=== PATIENT | female | born 1970 | race Caucasian/White ===

== ENCOUNTER → 2020-02-29 09:05 | Outpatient (CLI) | payer BC, SELFPAY ==
--- NOTE | ~2020-02-29 | XR_ITS ---
XR thoracic spine 2V DATE: 02/29/2020 09:58 INDICATION: Mid back pain TECHNIQUE: Standing AP, lateral, swimmer views COMPARISON: None FINDINGS: No fracture or dislocation or bone destruction. The thoracic pedicles are intact. There is mild degenerative spurring. IMPRESSION: Mild degenerative change Reviewed, dictated and finalized at location A. [employer] OPERATIONS MANAGER IMPRESSION: Mild degenerative change
--- NOTE | ~2020-02-29 | XR_ITS ---
XR lumbar spine 2-3V DATE: 02/29/2020 09:58 INDICATION: Low back pain TECHNIQUE: Standing AP, lateral and coned lateral lumbosacral views COMPARISON: 02/29/2020 lumbar spine FINDINGS: Normal alignment. No fracture or bone destruction or spondylolisthesis. Mild degenerative d isc disease, primarily at L4-5. The sacral iliac joints are intact. IMPRESSION: Mild degenerative change Reviewed, dictated and finalized at location A. [place] PARTS PROFESSIONAL IMPRESSION: Mild degenerative change
--- NOTE | ~2020-02-29 | XR_ITS ---
XR cervical spine 4-5V DATE: 02/29/2020 09:58 INDICATION: Neck pain TECHNIQUE: Standing AP, open-mouth and neutral, flexion and extension lateral views COMPARISON: None FINDINGS: C1 and C2 are normally aligned and the odontoid process is intact. No fracture or dislocation or locked facet or prevertebral soft tissue swelling. No instability is evident on flexion or extension. There is mild loss of interspace height and mild anterior posterior spurring at C5-6 consistent with degenerative disc disease. There is mild to moderate loss of interspace height at C6-7. The remaining cervical interspaces are relatively well preserved. IMPRESSION: Degenerative disc disease at C5-6 and to a lesser extent C6-7 Reviewed, dictated and finalized at location A. [employer] SALES CONSULTANT
== END ==
PROVIDERS: Visit Provider Chiropractor
DX: M50.323 Other cervical disc degeneration at C6-C7 level (principal); M51.34 Other intervertebral disc degeneration, thoracic region; M51.36 Other intervertebral disc degeneration, lumbar region
CPT/HCPCS: 72050; 72070; 72100

== ENCOUNTER → 2020-03-17 13:33 | Outpatient (CLI) | payer BC, SELFPAY ==
--- NOTE | ~2020-03-17 | MM_ITS ---
EXAMINATION: MM screening [facility] BI w raffi HISTORY: Screening TECHNIQUE: Craniocaudal and mediolateral oblique 3-D tomosynthesis images were obtained and synthetic 2-D images were generated. CAD analysis was submitted and interpreted. COMPARISON: Comparison to multiple prior studies sequentially, with oldest reviewed study dated 10/17. BREAST PARENCHYMAL COMPOSITION: The breasts are extremely dense, which lowers the sensitivity of mamm ography. FINDINGS: There is a mass measuring up to 2.8 cm in the upper outer quadrant of the left breast which appears new. The right breast is stable without evidence for malignancy. IMPRESSION: 1. New left breast mass, upper outer quadrant measuring up to 2.8 cm. 2. Additional mammographic views and possible breast ultrasound are recommended. BI-RADS Category 0: Incomplete: Needs additional imaging evaluation. Reviewed, dictated and finalized at location A. RECEPTIONIST IMPRESSION: 1. New left breast mass, upper outer quadrant measuring up to 2.8 cm. 2. Additional mammographic views and possible breast ultrasound are recommended . BI-RADS Category 0: Incomplete: Needs additional imaging evaluation.
== END ==
PROVIDERS: Visit Provider Obstetrics & Gynecology
DX: Z12.31 Encounter for screening mammogram for malignant neoplasm of breast (principal); R92.8 Other abnormal and inconclusive findings on diagnostic imaging of breast
CPT/HCPCS: 77063; 77067

== ENCOUNTER → 2020-04-10 09:14 | Outpatient (CLI) | payer BC, SELFPAY ==
--- NOTE | ~2020-04-10 | MMUS_ITS ---
EXAMINATION: MM diagnostic mammo unilat LT, US breast LT complete HISTORY: New upper outer quadrant 2.8 cm left breast mass reported on 03/17/2020 screening mammogram TECHNIQUE: Additional 3-D tomosynthesis images of the left breast were performed and synthetic 2-D im ages were generated. CAD analysis was submitted and interpreted. High resolution complete left breast ultrasound was performed. COMPARISON: 03/17/2020 bilateral digital screening mammogram BREAST PARENCHYMAL COMPOSITION: The breasts are extremely dense, which lowers the sensitivity of mamm ography. FINDINGS: MAMMOGRAPHIC FINDINGS: Extremely dense breast tissue is noted. This may obscure masses. An up proximally 2.4 cm low-density circumscribed mass is noted in the posterior outer mid left breas t. Left breast ultrasound examination was performed. ULTRASOUND: At 2:00 5 cm from the nipple corresponding to the mammographic finding is a parallel circumscribed so nolucency measuring 0.4 x 2.4 centimeters, consistent with simple cyst. There are scattered additional much smaller cysts of the left breast, the next largest measuring 4.4 x 8.4 x 10 mm dimension at 1:00 4 cm from the nipple. No suspicious mass or shadowing is detected. IMPRESSION: 1. Multiple benign left breast cyst. No mammographic evidence of malignancy. 2. Routine annual mammographic screening is recommended. BI-RADS Category 2: Benign finding(s). Reviewed, dictated and finalized at location A. K IMPRESSION: 1. Multiple benign left breast cyst. No mammographic evidence of malignancy. 2. Routine annual mammographic screening is recommended. BI-RADS Category 2: Benign finding(s).
== END ==
PROVIDERS: Visit Provider Obstetrics & Gynecology
DX: R92.8 Other abnormal and inconclusive findings on diagnostic imaging of breast (principal)
CPT/HCPCS: 76641; 77065

== ENCOUNTER → 2021-06-19 13:51 | Outpatient (CLI) | payer BC, SELFPAY ==
--- NOTE | ~2021-06-19 | MM_ITS ---
EXAMINATION: MM screening [facility] w raffi HISTORY: Screening mammogram TECHNIQUE: Craniocaudal and mediolateral oblique 3-D tomosynthesis images were obtained and synthetic 2-D images were generated. CAD analysis was submitted and interpreted. COMPARISON: April 10, 2020 diagnostic mammogram and left breast ultrasound 03/17/2020 bilateral screening mammogram / diagnostic right mammogram and right breast ultrasound 12/25/2017 diagnostic right mammogram and limited right breast ultrasound 12/19/2017 bilateral screening mammogram BREAST PARENCHYMAL COMPOSITION: The breasts are extremely dense, which lowers the sensitivity of mamm ography. FINDINGS: Left breast: Approximately 8.5 x 14 mm opacity is noted in the outer mid left breast. Additional larger circumscri bed opacities with halo sign suggesting cysts are noted on the left. Diagnostic left mammogram and le ft breast ultrasound examination are recommended. Right breast: There is no evidence of suspicious mass, calcification, or architectural distortion to suggest malignancy in either breast. There has been no suspicious interval change. IMPRESSION: 1. New 8.5 x 14 mm mass, outer mid left breast 2. Diagnostic left mammogram and left breast ultrasound are recommended BI-RADS Category 0: Incomplete: Needs additional imaging evaluation. Reviewed, dictated and finalized at location A.
== END ==
PROVIDERS: Visit Provider Obstetrics & Gynecology
DX: Z12.31 Encounter for screening mammogram for malignant neoplasm of breast (principal); R92.8 Other abnormal and inconclusive findings on diagnostic imaging of breast
CPT/HCPCS: 77063; 77067

== ENCOUNTER → 2021-07-09 14:08 | Outpatient (CLI) | payer BC, SELFPAY ==
--- NOTE | ~2021-07-09 | MMUS_ITS ---
EXAMINATION: MM diagnostic [facility] LT w raffi, US breast LT complete HISTORY: Follow-up left breast mass TECHNIQUE: Additional 3-D tomosynthesis images of the left breast were performed and synthetic 2-D im ages were generated. CAD analysis was submitted and interpreted. High resolution complete left breast ultrasound was performed. COMPARISON: Comparison to multiple prior studies sequentially, with oldest reviewed study dated 12/01. BREAST PARENCHYMAL COMPOSITION: The breasts are extremely dense, which lowers the sensitivity of mamm ography FINDINGS: MAMMOGRAPHIC FINDINGS: There is a circumscribed mass in the mid outer aspect of the left breast posteriorly on MLO and medio lateral views. No suspicious calcifications or architectural distortion. ULTRASOUND: Complete US of all 4 quadrants of the left breast and retroareolar region was reviewed. There are mul tiple left breast cysts throughout the left breast, largest measuring 2.7 x 0.6 x 2.9 cm correspondin g to the mammographic abnormality located at 2:00, 5 cm from the nipple. Multiple additional smaller cyst are present throughout the left breast. No sonographic evidence for malignancy. IMPRESSION: 1. No evidence for malignancy in the left breast. Benign findings. 2. Routine yearly screening mammogram and regular clinical breast examination are recommended. BI-RADS Category 2: Benign finding(s). Reviewed, dictated and finalized at location A. IMPRESSION: 1. No evidence for malignancy in the left breast. Benign findings. 2. Routine yearly screening mammogram and regular clinical breast examination a re recommended. BI-RADS Category 2: Benign finding(s).
== END ==
PROVIDERS: PCP Obstetrics & Gynecology; Visit Provider Obstetrics & Gynecology
DX: R92.8 Other abnormal and inconclusive findings on diagnostic imaging of breast (principal)
CPT/HCPCS: 76641; 77061; 77065; G0279

== ENCOUNTER → 2022-08-05 15:42 | Outpatient (CLI) | payer BC, SELFPAY ==
--- NOTE | ~2022-08-05 | MM_ITS ---
EXAMINATION: MM screening [facility] w raffi HISTORY: Screening TECHNIQUE: Craniocaudal and mediolateral oblique 3-D tomosynthesis images were obtained and synthetic 2-D images were generated. CAD analysis was submitted and interpreted. COMPARISON: Comparison to multiple prior studies sequentially, with oldest reviewed study dated 12/02. BREAST PARENCHYMAL COMPOSITION: The breasts are extremely dense, which lowers the sensitivity of mammography FINDINGS: There is no evidence of suspicious mass, calcification, or architectural distortion to sugg est malignancy in either breast. There has been no suspicious interval change. IMPRESSION: 1. No mammographic evidence of malignancy. 2. Recommend routine screening mammography in one year. BI-RADS Category 1: Negative Reviewed, dictated and finalized at location A.
== END ==
PROVIDERS: PCP Obstetrics & Gynecology; Visit Provider Obstetrics & Gynecology
DX: Z12.31 Encounter for screening mammogram for malignant neoplasm of breast (principal)
CPT/HCPCS: 77063; 77067

== ENCOUNTER 2023-10-31 13:15 | Outpatient (CLI) | payer BC, SELFPAY ==
--- NOTE | ~2023-10-31 | MM_ITS ---
EXAMINATION: MM screening [facility] w raffi HISTORY: Screening TECHNIQUE: Craniocaudal and mediolateral oblique 3-D tomosynthesis images were obtained and synthetic 2-D images were generated. CAD analysis was submitted and interpreted. COMPARISON: Comparison to multiple prior studies sequentially, with oldest reviewed study dated 06/22. BREAST PARENCHYMAL COMPOSITION: Dense: The breasts are extremely dense, which lowers the sensitivity of mammography. FINDINGS: There is no evidence of suspicious mass, calcification, or architectural distortion to sugg est malignancy in either breast. There has been no suspicious interval change. IMPRESSION: 1. No mammographic evidence of malignancy. 2. Recommend routine screening mammography in one year. BI-RADS Category 1: Negative Reviewed, dictated and finalized at location B.
== END 2023-10-31 13:16 | disposition home or self-care (01) ==
LOC: MICIMG 13:17
PROVIDERS: PCP Obstetrics & Gynecology; Visit Provider Obstetrics & Gynecology
DX: Z12.31 Encounter for screening mammogram for malignant neoplasm of breast (principal)
CPT/HCPCS: 77063; 77067

== ENCOUNTER 2024-12-24 13:29 | Outpatient (CLI) | payer BC, SELFPAY ==
--- NOTE | ~2024-12-24 | MM_ITS ---
EXAMINATION: MM screening [facility] w raffi HISTORY: Screening TECHNIQUE: Craniocaudal and mediolateral oblique 3-D tomosynthesis images were obtained and synthetic 2-D images were generated. CAD analysis was submitted and interpreted. COMPARISON: Comparison to multiple prior studies sequentially, with oldest reviewed study dated 03/17/2020. BREAST PARENCHYMAL COMPOSITION: Dense: The breasts are extremely dense, which lowers the sensitivity of mammography. FINDINGS: There is no evidence of suspicious mass, calcification, or architectural distortion to suggest malignancy in either breast. There has been no suspicious interval change. IMPRESSION: 1. No mammographic evidence of malignancy. 2. Recommend routine screening mammography in one year. BI-RADS Category 1: Negative Reviewed, dictated and finalized at location O.
== END 2024-12-24 13:30 | disposition home or self-care (01) ==
LOC: MICIMG 13:30
PROVIDERS: PCP Family Medicine; Visit Provider Obstetrics & Gynecology
DX: Z12.31 Encounter for screening mammogram for malignant neoplasm of breast (principal)
CPT/HCPCS: 77063; 77067